=== PATIENT | female | born 1985 | race American Indian/Alaskan Native ===

== ENCOUNTER 2017-10-09 16:01 | Outpatient (CLI) | payer OTHER | END 2017-10-09 16:02 | disposition home or self-care (01) | LOC: LABHHL 16:01 | PROVIDERS: ATTEND Surgery | DX: D24.2 Benign neoplasm of left breast (principal) | CPT/HCPCS: 88305 ==

== ENCOUNTER 2017-11-16 06:11 | Day surgery (SDC) | payer OTHER ==
--- NOTE | 2017-11-16 07:49 | Anesthesia Day of Surgery ---
Anesthesia Day of Surgery - Day of Surgery Patient Examined: Yes Patient H&P Reviewed: Yes Patient is NPO: Yes
--- NOTE | 2017-11-16 07:49 | Anesthesia Consultation ---
Anesthesia Consult and Med Hx Date of service: 11/16/17 - Airway Anesthetic Teeth Evaluation: Good ROM Head & Neck: Adequate Mental/Hyoid Distance: Adequate Mallampati Class: Class II Intubation Access Assessment: Probably Good - Pulmonary Exam CTA: Yes - Cardiac Exam Cardiac Exam: RRR - Pre-Operative Health Status ASA Pre-Surgery Classification: ASA1 Proposed Anesthetic Plan: General - Pulmonary Hx Smoking: No Hx Asthma: No - Cardiovascular System Hx Hypertension: No - Central Nervous System Hx Seizures: No CVA: No - Endocrine Hx Renal Disease: No Hx Insulin Dependent Diabetes: No Hx Non-Insulin Dependent Diabetes: No Hx Hypothyroidism: No - Other Systems Hx Obesity: No
[2017-11-16] MEDS ORDERED: LACTATED RINGERS 1,000 ML IV SCH (08:00)
[2017-11-16] MEDS ORDERED: PERCOCET 5/325 PO PRN (08:00)
[2017-11-16] MEDS ORDERED: ANCEF/STERILE WATER 2 GM/20 ML IV NR (08:00)
[2017-11-16] MEDS ORDERED: PEPCID PO NR (08:00)
[2017-11-16] MEDS ORDERED: ZOFRAN IV PRN (08:00)
[2017-11-16] MEDS ORDERED: VERSED IV NR (08:00)
[2017-11-16] MEDS ORDERED: SUBLIMAZE IV PRN (08:00)
[2017-11-16] MEDS ORDERED: XYLOCAINE 1% 20 mL INFILTRATI NR (08:01)
--- NOTE | 2017-11-16 09:51 | Mammography Report ---
NEEDLE LOCALIZATION AND HOOKWIRE PLACEMENT LEFT BREAST:11/16/17 CLINICAL: Left breast mass with a biopsy clip. COMPARISON: 10/09/17 FINDINGS: Using mammographic guidance, 1% lidocaine local anesthesia and sterile technique, a 7.5-cm Posada hookwire was placed from a lateral approach to localize a mass with a biopsy clip. Two views demonstrated satisfactory targeting. The hookwire was deployed and two additional orthogonal images were obtained. The patient tolerated the procedure well and there were no apparent complications. IMPRESSION: Uncomplicated hookwire placement left breast.
[2017-11-16] MEDS ORDERED: XYLOCAINE MPF 2% ONE (11:24)
[2017-11-16] MEDS ORDERED: DIPRIVAN 10 MG/ML IV ONE (11:24)
[2017-11-16] MEDS ORDERED: DILAUDID ONE (11:25)
[2017-11-16] MEDS ORDERED: WATER FOR IRRIG STERILE IR ONE (11:58)
[2017-11-16] MEDS ORDERED: XYLOCAINE 1% 20 mL INFILTRATI ONE (11:58)
[2017-11-16] MEDS ORDERED: MARCAINE 0.25% INFILTRATI ONE (11:58)
[2017-11-16] MEDS ORDERED: ZOFRAN ONE (12:13)
[2017-11-16] MEDS ORDERED: DECADRON ONE (12:14)
--- NOTE | 2017-11-16 12:52 | Mammography Report ---
SPECIMEN RADIOGRAPH LEFT BREAST: 11/16/17 06:11:00 CLINICAL: Surgical excision of a mass. FINDINGS: The targeted mass with a biopsy clip and a hookwire are identified within the specimen. IMPRESSION: Excision of the targeted lesion.
--- NOTE | 2017-11-16 13:20 | Short Stay Summary ---
Short Stay Documentation Date of service: 11/16/17 - History H&P: obtained from office - Allergies and Medications Current Medications: Allergies No Known Allergies Allergy (Verified 11/16/17 07:50) Active Medications Famotidine (Pepcid) 20 mg PO PREOP NR Stop: 11/16/17 21:00 Last Admin: 11/16/17 08:44 Dose: 20 mg Fentanyl (Sublimaze) 50 mcg IV Q5MIN PRN PRN Reason: Pain , Severe (7-10) Stop: 11/16/17 15:00 Lactated Ringer's (Lactated Ringers) 1,000 mls @ 75 mls/hr IV DIRECT EDMOND Last Admin: 11/16/17 08:40 Dose: 75 mls/hr Midazolam HCl (Versed) 2 mg IV PREOP NR Stop: 11/16/17 23:59 Last Admin: 11/16/17 08:45 Dose: 2 mg Ondansetron HCl (Zofran) 4 mg IV ONCE PRN PRN Reason: Nausea And Vomiting Stop: 11/16/17 21:00 Oxycodone/Acetaminophen (Percocet 5/325) 1 tab PO ONCE PRN PRN Reason: Pain, Moderate (4-6) Stop: 11/16/17 21:00 - Brief post op/procedure progress note Date of procedure: 11/16/17 Pre-op diagnosis: 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 Post-op diagnosis: same Procedure: Left needle localization fibroadenoma excisional biopsy of the lower inner quadrant Anesthesia: GETA Findings: Wire and clip present within radiograph specimen Surgeon: ELVIE MIRANDA Estimated blood loss: minimal Pathology: list (left fibroadenoma) Specimen disposition: to lab Condition: stable - Disposition Condition at discharge: Good Disposition: DC-01 TO HOME OR SELFCARE Short Stay Discharge Plan Activity: other (no heavy lifting) Diet: regular Wound: other (keep incision clean and dry and may shower in 24 hours; no baths, pools or lakes; do not rub or scrub incision) Follow up with: MEL HASSAN MD [Primary Care Provider] - 7 Days ELVIE MIRANDA MD [Staff Physician] - 7 Days
--- NOTE | 2017-11-16 13:29 | Post Anesthesia Evaluation ---
- Post Anesthesia Evaluation Patient Participated: Yes Airway Patent: Yes Stable Respiratory Function: Yes Nausea/Vomiting: No Temp > 96.8F: Yes Pain Manageable: Yes Adequeate Hydration: Yes Anesthesia Complications: No Block Receding Appropriately: Not Applicable Patient on Ventilator: No
--- NOTE | 2017-11-16 13:31 | Operative Report ---
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 Left breast mass was recently biopsied with findings of a fibroadenoma. She wished to proceed with an excisional biopsy given symptomatic pain. Patient wished to proceed with the above procedure. . Procedure in detail: The patient was taken to radiology for wire placement for localization of area of concern. Patient was then taken to the operating room. Gen. anesthesia was administered. The left breast was prepped and draped in the normal sterile operative fashion. The wire was identified. Timeout was performed. A breast incision was made with a 15 blade knife around the 6:00 position 8-9 cm from the nipple with dissection taken down to subcutaneous tissues. First began raising of the lateral flap with removal of the wire from the skin, followed by raising of the medial flap, superior flap and inferior flap. The breast area of concern was appropriately removed posteriorly with the aid of the bovie cauter. The wire was not encountered. Specimen was marked and then sent to pathology and radiology; radiograph specimen with wire, clip and mass present. Breast cavity was irrigated and hemostasis was obtained. The breast cavity was anesthetized with 1% lidocaine mixed with quarter percent Marcaine. The subcutaneous tissues were approximated and closed using interrupted 3-0 Vicryl followed by a running 4-0 Monocryl and skin affix. The patient tolerated surgery very well and she was awaken from anesthesia without any complication and transported to PACU in good condition.
[2017-11-16] MEDS ORDERED: DILAUDID IV PRN (14:00)
[2017-11-16 14:11] VITALS: BP 127/78
== END 2017-11-16 14:40 | disposition home or self-care (01) ==
LOC: OR 06:11
PROVIDERS: ATTEND Surgery
DX: D24.2 Benign neoplasm of left breast (principal); Z98.890 Other specified postprocedural states
CPT/HCPCS: 19125; 19281; 76098; 88307; J0690; J1100; J1170; J2250; J2405; J2704; J7120

== ENCOUNTER 2018-05-22 08:44 | Outpatient (CLI) | payer OTHER ==
--- NOTE | 2018-05-22 10:13 | Mammography Report ---
LEFT DIGITAL DIAGNOSTIC MAMMOGRAM : 05/22/18 08:44:00 CLINICAL: Left asymmetry. COMPARISON:[facility] 09/01/17 FINDINGS: The breast is heterogeneously dense with a stable fibroglandular pattern. No mass, architectural distortion or suspicious calcifications. A benign intramammary lymph node with central fat. A previously identified lower outer benign fibroadenoma appears to have been excised. IMPRESSION: No mammographic evidence of malignancy. BI-RADS CATEGORY: 1 - - Negative RECOMMENDATION: Routine mammographic screening. ACR BI-RADS MAMMOGRAPHIC CODES: 0 = Needs additional imaging evaluation; 1 = Negative; 2 = Benign; 3 = Probably benign; 4 = Suspicious; 5 = Malignant; 6 = Known biopsy-proven malignancy COMMENT: 1. Dense breast tissue, i.e., adenosis, fibrocystic changes, etc., may obscure an underlying neoplasm. 2. Approximately 10% of cancers are not detected with mammography. 3. A negative mammography report should not delay biopsy if a clinically suspicious mass is present. COMMENT: Patient follow-up letters are generated by our [employer] application.
== END 2018-05-22 08:45 | disposition home or self-care (01) ==
LOC: SPVIMAG 08:44
PROVIDERS: ATTEND Surgery
DX: R92.8 Other abnormal and inconclusive findings on diagnostic imaging of breast (principal)

== ENCOUNTER 2018-10-09 13:04 | Outpatient (CLI) | payer OTHER ==
--- NOTE | 2018-10-09 14:13 | Ultrasound Report ---
LEFT BREAST ULTRASOUND: 10/09/18 13:04:00 CLINICAL: Palpable left breast mass. COMPARISON: 09/18/18 mammogram FINDINGS: Ultrasound of the upper-outer left breast was performed and demonstrated an oval solid heterogeneous hypoechoic facial mass at 1 o'clock 5 cm from the nipple.It measures 1.4 x 1.2 x 0.9 cm and correlates with a circumscribed mammographic mass. A benign cyst at 1 o'clock 4 cm from the nipple measures 8 x 3 x 5 mm. IMPRESSION: A probably benign 1.4 cm solid left breast mass at 1 o'clock 5 cm from the nipple. Sonographic features suggest benign fibroadenoma. BI-RADS 3 - - Probably Benign RECOMMENDATION: Six month followup left breast ultrasound.
--- NOTE | 2018-10-09 14:16 | Mammography Report ---
RIGHT DIGITAL DIAGNOSTIC MAMMOGRAM : 10/09/18 13:04:00 CLINICAL: Recall for asymmetries. COMPARISON:09/18/18 screening FINDINGS: Additional mammographic views were performed and are negative.Satisfactory placement of asymmetries. A few tiny benign punctate calcifications. IMPRESSION: No mammographic evidence of malignancy. BI-RADS CATEGORY: 2 - - Benign RECOMMENDATION: Routine mammographic screening based on ACS guidelines. ACR BI-RADS MAMMOGRAPHIC CODES: 0 = Needs additional imaging evaluation; 1 = Negative; 2 = Benign; 3 = Probably benign; 4 = Suspicious; 5 = Malignant; 6 = Known biopsy-proven malignancy COMMENT: 1. Dense breast tissue, i.e., adenosis, fibrocystic changes, etc., may obscure an underlying neoplasm. 2. Approximately 10% of cancers are not detected with mammography. 3. A negative mammography report should not delay biopsy if a clinically suspicious mass is present. COMMENT: Patient follow-up letters are generated via our [employer] application.
== END 2018-10-09 13:05 | disposition home or self-care (01) ==
LOC: SPVWC 13:04
PROVIDERS: ATTEND Surgery
DX: R92.8 Other abnormal and inconclusive findings on diagnostic imaging of breast (principal)